=== PATIENT | female | born 1960 | race Caucasian/White ===

== ENCOUNTER 2016-04-10 15:22 | Emergency (ER) | payer BC, OTHER ==
[2016-04-10 15:53] LABS: Hematocrit 47.2 % (37.0-47.0); Mean Cell Volume 86.8 fl (78-100); Mean Corpuscular Hemoglobin 29.4 pg (27-31); Mean Corpuscular Hgb Conc 33.9 g/dl (32-36); Mean Platelet Volume 9.2 fl (6.0-9.5); Neutrophil # 2.7 K/mm3 (1.3-6.0); Neutrophil % 40.2 % (42-75.0); Platelet Count 324 K/mm3 (150-450); Red Blood Count 5.44 M/mm3 (4.2-5.4); Red Cell Distribution Width 12.8 % (11.5-14.0); White Blood Count 6.8 K/mm3 (4.0-10.5)
[2016-04-10 16:11] LABS: ALT 25 U/L (19-67); AST 23 U/L (0-48); Albumin * 3.9 gm/dl (3.4-5.0); Alkaline Phosphatase * 106 U/L (50-170); Anion Gap 14.2 mmol/L (6.8-13.8); BUN/Creatinine Ratio 13.4 (9.0-21.6); Bilirubin, Total 0.3 mg/dL (0.0-1.1); Blood Urea Nitrogen 15 mg/dL (3-23); Ca. Corrected For Albumin 9.2 mg/dL (8.4-10.2); Calcium * 9.4 mg/dL (7.9-10.9); Carbon Dioxide 26.9 mmol/L (24-32.6); Chloride 101 mmol/L (97-106); Glucose * 83 mg/dL (70-110); Potassium 3.1 mmol/L (3.4-4.6); Sodium 139 mmol/L (132-142); Total Protein 8.5 gm/dL (6.2-8.2); Troponin I Less than 0.017 ng/ml (0.00-0.10)
--- NOTE | 2016-04-10 16:32 | ERNOTE ---
Dizziness ER Record Date of Service: 04/10/16 Presenting Symptoms: dizziness, weakness Time Seen by Provider: 04/10/16 16:00 Source: patient Exam Limitations: no limitations Immunizations: IMMUNIZATION HX Immunizations Up to Date Yes History of Influenza Vaccine No Hx Pneumococcal Vaccination No Allergies/Adverse Reactions: Allergies Allergy/AdvReac Type Severity Reaction Status Date / Time No Known Allergies Allergy Verified 04/10/16 15:35 Home Medications: HOME MEDICATIONS Levonorgestrel [Mirena] 1 each IY [id number] 10/05/14 [Last Taken Unknown] Atenolol [Tenormin] 25 mg PO DAILY 10/22/15 [Last Taken Unknown] Duloxetine HCl [Cymbalta] 60 mg PO BID 10/22/15 [Last Taken Unknown] Amox Tr/Potassium Clavulanate [Augmentin 875-125 Tablet] 875 mg PO Q12H #20 tab 04/10/16 [Last Taken Unknown] Ondansetron [Zofran Odt] 4 mg PO Q8H PRN #12 tab 04/10/16 [Last Taken Unknown] Potassium Chloride [Klor-Con] 20 meq PO DAILY #5 packet 04/10/16 [Last Taken Unknown] - History of Present Illness Narrative: Patient comes due to generalized weakness and the sensation of been off balance. Patient with no recent trauma to the head, no LOC, no vomiting, and no diarrhea. Patient denies any chest pain or any coughing. Timing and Duration: gradual onset Severity: max: moderate Severity: currently: mild Associated Symptoms: Present: light headedness. Absent: hearing loss, ringing/ roaring in ear, ear pain, nausea, vomiting, headache, weakness, numbness, sweating, sense of confusion Sense of movement: Present: vague Fainted/near fainted while:: Absent: standing, sitting, supine Decreased ability to stand/walk:: Absent: weak, difficult, off balance, cannot walk, cannot stand, falling, walks w/o assistance, cane, walker, unable to walk , bed-ridden, unable to sit Usually:: Present: walks w/o assistance Modifying Factors - (Improves): Reports: nothing Modifying Factors - (Worsens): Reports: changing position, movement of head, standing position Prior Treament: Denies: recently seen Review of Systems - Review of Systems Constitutional: Present: weakness, malaise. Absent: fever, chills, diaphoresis , fatigue, weight loss EYE: Present: no symptoms reported ENT: Present: no symptoms reported Respiratory: Absent: cough, wheezing Cardiology: Absent: chest pain, palpitations, syncope, edema, claudication Gastrointestinal/Abdominal: Absent: nausea, vomiting, diarrhea, constipation, abdominal pain Genitourinary: Present: no symptoms reported Musculoskeletal: Present: no symptoms reported Skin: Present: no symptoms reported. Absent: rash Neurological: Present: no symptoms reported, dizziness/light-headedness, weakness. Absent: anxiety, depressed, emotional problems, headache, seizure, numbness Endocrine: Present: no symptoms reported Hematologic/Lymphatic: Present: no symptoms reported Psych: Present: no symptoms reported - Patient's Past Medical History Patient History - Medical: Anxiety, GERD, Migraines, Rheumatoid Arthritis, UTI'S Patient History - Cancer: No Hx of Cancer Patient History - Surgical Procedures: Appendectomy, Cholecystectomy, Other - Social History Living Situations: home Smoking Status: Never smoker Alcohol Use: occasionally Drug Use: none Physical Exam - Physical Exam General Appearance: Present: wd/wn, alert, no apparent distress Eye Exam: Normal inspection: bilateral, PERRL: bilateral, EOMI: bilateral Ears, Nose, Throat: Present: normal ENT inspection, hearing grossly normal, abnormal TM (R) - There is an ear tube. There is swelling and dullness of TM. There is ear pain., pharyngeal erythema. Absent: pharyngeal swelling, tonsillar exudate Neck: Present: normal inspection, nontender Respiratory: Present: no respiratory distress, normal breath sounds, no accessory muscle use, chest nontender, lungs clear Cardiovascular/Chest: Present: regular rate, rhythm, no murmur, normal peripheral pulses Gastrointestinal/Abdominal: Present: normal bowel sounds, nontender, nondistended, no organomegaly Back Exam: Present: normal inspection, normal range of motion, no CVA tenderness , no vertebral tenderness Extremity Exam: Present: normal inspection, non-tender, no edema, normal range of motion Neurological Exam: Present: alert, oriented, normal mood/affect, no motor/ sensory deficits Skin Exam: Present: normal color, warm/dry Lymphatic Exam: Present: no adenopathy ED Progress - Date and Time Seen: Date and Time: 04/10/16 16:31 Patient with a GCS: 15/15 and NIH Stroke Scale: 0. Patient with a elevated Monocytes. Patient at the moment in no distress with a possible viral cause. - Results and Orders Patient's Lab Results:: I have reviewed the patient's lab results. Results and Orders: WBC: No leukocytosis with elevated Monocytes noticed Negative Trop Normal BUN and Creatinine. Hypokalemia noticed Negative Flu Elevated ESR UA: Normal - Vital Signs Patient's Vital Signs:: I have reviewed the patient's vital signs. Vital Signs: Vital Signs 04/10/16 04/10/16 15:31 15:51 Temperature 36.5 C Pulse Rate 86 90 Respiratory 14 Rate Blood Pressure 133/95 O2 Sat by Pulse 96 Oximetry - EKG EKG: NSR EKG read: Interp. by me EKG Comments: HR: 85, Normal [place], No ST Elevation - X-Ray X-Ray #1 X-Ray: chest X-ray Comments: No acute process identified by Radiologist on Report - Progress/Reassessment Chief Complaint: Dizziness Progress:: Improved Departure Clinical Impression: Dizziness, Nausea, Hypokalemia Otitis media Qualifiers: Otitis media type: unspecified nonsuppurative Laterality: right Qualified Code( s): H65.91 - Unspecified nonsuppurative otitis media, right ear - Departure Disposition: Home self-care Condition: Stable Instructions: Nausea, Adult, Vertigo, [id number], Labyrinthitis Referrals: [Primary Care Provider] - Prescriptions: Amox Tr/Potassium Clavulanate [Augmentin 875-125 Tablet] 875 mg PO Q12H #20 tab Ondansetron [Zofran Odt] 4 mg PO Q8H PRN #12 tab PRN Reason: Nausea And Vomiting Potassium Chloride [Klor-Con] 20 meq PO DAILY #5 packet
[2016-04-10] MEDS ORDERED: ONDANSETRON 4 MG TAB.RAPDIS PO ONE (16:57)
[2016-04-10] MEDS ORDERED: ONDANSETRON 4 MG TAB.RAPDIS ONE (16:58)
[2016-04-10 17:20] LABS: Urine Bilirubin Negative (NEGATIVE); Urine Ketone Negative (NEGATIVE); Urine Nitrite Negative (NEGATIVE); Urine Protein Negative (NEGATIVE); Urine Specific Gravity 1.025 SP.GR. (1.005-1.010); Urine Urobilinogen Normal (NORMAL)
[2016-04-10 17:50] LABS: Urine Appearance Clear; Urine Bacteria None Seen; Urine Blood 10 /ul (NEGATIVE); Urine Color Yellow; Urine RBC 0-5 /hpf (0-5); Urine WBC None Seen /hpf (0-5)
[2016-04-10] MEDS ORDERED: POTASSIUM CHLORIDE 20 MEQ TABLET.SA PO ONE (17:53)
[2016-04-10] MEDS ORDERED: POTASSIUM CHLORIDE 20 MEQ TABLET.SA ONE (17:58)
[2016-04-10 18:33] VITALS: BP 126/78
== END 2016-04-10 18:05 | disposition home or self-care (01) ==
LOC: ER 15:22
DX: H65.91 Unspecified nonsuppurative otitis media, right ear (principal); R42 Dizziness and giddiness; R11.0 Nausea; E87.6 Hypokalemia